=== PATIENT | male | born 1940 | race Caucasian/White ===

== ENCOUNTER 2017-01-16 12:35 | Emergency (ER) | payer MEDICARE, MEDICAID ==
[~2017-01-16] VITALS: Ht 165.1 cm; Wt 81.6 kg
[2017-01-16 12:48] VITALS: BP_SYST 127
[2017-01-16 13:35] LABS: BASOPHILS # (AUTO) 0.1 K/uL (0.0-0.2); EOSINOPHILS # (AUTO) 0.2 K/uL (0.0-0.4); EOSINOPHILS % (AUTO) 1.8 % (0.0-4.0); HEMATOCRIT 44.8 % (36-54); HEMOGLOBIN 14.5 g/dL (14.0-18.0); LYMPHOCYTES # (AUTO) 1.8 K/uL (1.0-5.5); LYMPHOCYTES % (AUTO) 15.7 % (20.5-51.5); MEAN CORPUSCULAR HEMOGLOBIN 30 pg (27-31); MEAN CORPUSCULAR HGB CONC 32 % (32-36); MEAN CORPUSCULAR VOLUME 91 fL (79.0-98.0); MONOCYTES # (AUTO) 0.7 K/uL (0.0-1.0); NEUTROPHILS # (AUTO) 8.7 K/uL (1.8-7.7); NEUTROPHILS % (AUTO) 75.5 % (40.0-70.0); PLATELET COUNT (AUTO) 215 K/uL (130-430); RED BLOOD CELL COUNT(AUTO) 4.91 MIL/uL (4.2-6.2); RED CELL DISTRIBUTION WIDTH 13.6 % (9.0-15.0); WHITE BLOOD COUNT (AUTO) 11.5 K/uL (4.8-10.8)
[2017-01-16 13:38] LABS: CALCIUM 8.8 mg/dL (8.4-11.0); CHLORIDE 105 mmol/L (98-107); CREATININE 0.68 mg/dL (0.55-1.30); GLUCOSE 122 mg/dL (70-99); SODIUM SERUM 138 mmol/L (136-145); UREA NITROGEN, BLOOD 19 mg/dL (8-21)
[2017-01-16 13:44] LABS: ANION GAP < 3 (5-15)
[2017-01-16 13:49] LABS: TOTAL BILIRUBIN 0.6 mg/dL (0.0-1.0)
[2017-01-16 13:50] LABS: ALANINE AMINOTRANSFERASE 28 U/L (12-78); ALBUMIN 3.4 g/dL (3.4-4.8); ASPARTATE AMINOTRANSFERASE 21 U/L (10-37); TOTAL PROTEIN, SERUM 7.5 g/dL (6.4-8.3)
[2017-01-16] MEDS ORDERED: MORPHINE 4 MG/ML INJ. SYRINGE IVP ONE (14:00)
[2017-01-16] MEDS ORDERED: PIPERACILLIN/TAZO 3.38 GM in NS 50 ML IV ONE (14:00)
[2017-01-16] MEDS ORDERED: DIPHENHYDRAMINE INJ 50 MG/ML VIAL IVP ONE (14:00)
[2017-01-16] MEDS ORDERED: PIPERACILLIN/TAZOBACTAM 3.375 GM/VIAL (ZOSYN) IV ONE (14:08)
[2017-01-16 14:11] LABS: INR 1.1 (0.80-1.20)
[2017-01-16 14:55] LABS: BILIRUBIN,URINE NEGATIVE (NEGATIVE); BLOOD, URINE NEGATIVE (NEGATIVE); CLARITY/URINE CLEAR (CLEAR); COLOR,URINE YELLOW (YELLOW); GLUCOSE,URINE NEGATIVE (NEGATIVE); KETONES,URINE NEGATIVE (NEGATIVE); LEUKOCYTE ESTERASE ,URINE NEGATIVE (NEGATIVE); NITRITE, URINE NEGATIVE (NEGATIVE); PROTEIN URINE NEGATIVE (NEGATIVE)
[2017-01-16] MEDS ORDERED: CIPROFLOXACIN HCL 500 MG TABLET PO ONE (15:45)
[2017-01-16 16:38] VITALS: BP_SYST 116
== END 2017-01-16 16:38 | disposition home or self-care (01) ==
LOC: SED 12:35
DX: G89.29 Other chronic pain (principal); M54.5 Low back pain; R19.7 Diarrhea, unspecified; E11.9 Type 2 diabetes mellitus without complications; I10 Essential (primary) hypertension; E78.00 Pure hypercholesterolemia, unspecified; Z98.890 Other specified postprocedural states
CPT/HCPCS: 36415; 71010; 74176; 80053; 81003; 83605; 83690; 85025; 85610; 87040; 93005; 96365; 96375; 99285; J1200; J2543

== ENCOUNTER 2022-10-29 18:11 | Inpatient (IN) | payer OTHER, MEDICAID ==
[~2022-10-29] VITALS: Ht 165.1 cm; Wt 78.0 kg
[~2022-10-29 18:11] MED LIST: DONE10TA44 PO; FINA5TAB3 PO; GABA-529 PO; GLU500 PO; HYDR-3917 PO; ISOS30TA85 PO; LOSA25TA3 PO; LOSA50TA3 PO; MEMA10TA PO; METF-518 PO; METO25TA3 PO; ROSU20TA2 PO; TAMS-11 PO
[2022-10-29 18:15] VITALS: BP_SYST 183
[2022-10-29] MEDS ORDERED: NITROGLYCERIN 1 INCH (GM) OINT. ONE (18:29)
[2022-10-29] MEDS ORDERED: ASPIRIN 81 MG TABLET(ECOTRIN) PO ONE (18:30)
[2022-10-29] MEDS ORDERED: NITROGLYCERIN 0.4 MG TAB.SUBL SL ONE (18:30)
[2022-10-29] MEDS ORDERED: LABETALOL HCL 20 MG/4 ML CARTRIDGE IVP ONE (18:30)
[2022-10-29] MEDS ORDERED: NITROGLYCERIN 1 INCH (GM) OINT. TP ONE (18:30)
[2022-10-29] MEDS ORDERED: ACETAMINOPHEN 325 MG TABLET PO ONE (18:30)
[2022-10-29 19:01] LABS: BASOPHILS % (AUTO) 0.5 % (0.0-2.0); EOSINOPHILS # (AUTO) 0.2 K/uL (0.0-0.4); HEMATOCRIT 40.9 % (36-54); HEMOGLOBIN 13.3 g/dL (14.0-18.0); LYMPHOCYTES % (AUTO) 25.9 % (20.5-51.5); MEAN CORPUSCULAR HEMOGLOBIN 30 pg (27-31); MEAN CORPUSCULAR HGB CONC 33 % (32-36); MEAN CORPUSCULAR VOLUME 93 fL (79.0-98.0); MONOCYTES # (AUTO) 0.8 K/uL (0.0-1.0); MONOCYTES % (AUTO) 9.7 % (1.7-9.3); NEUTROPHILS # (AUTO) 4.8 K/uL (1.8-7.7); NEUTROPHILS % (AUTO) 60.9 % (40.0-70.0); PLATELET COUNT (AUTO) 183 K/uL (130-430); RED BLOOD CELL COUNT(AUTO) 4.39 MIL/uL (4.2-6.2); WHITE BLOOD COUNT (AUTO) 7.8 K/uL (4.8-10.8)
[2022-10-29 19:24] LABS: ANION GAP 7 (5-15); CALCIUM 9.3 mg/dL (8.4-11.0); CHLORIDE 107 mmol/L (98-107); CREATININE 0.83 mg/dL (0.55-1.30); GLUCOSE 111 mg/dL (70-99); UREA NITROGEN, BLOOD 25 mg/dL (8-21)
[2022-10-29 19:32] LABS: ALANINE AMINOTRANSFERASE 19 U/L (12-78); ALBUMIN 3.1 g/dL (3.4-4.8); ASPARTATE AMINOTRANSFERASE 10 U/L (10-37); TOTAL BILIRUBIN 0.5 mg/dL (0.0-1.0)
[2022-10-29] MEDS ORDERED: DOCUSATE SODIUM 100 MG CAPSULE PO PRN (20:30)
[2022-10-29] MEDS ORDERED: MAGNESIUM SULFATE 50 ML IV PRN (20:30)
[2022-10-29] MEDS ORDERED: ONDANSETRON HCL 4 MG/2 ML VIAL IVP PRN (20:30)
[2022-10-29] MEDS ORDERED: POTASSIUM CHLORIDE 20 MEQ TAB.PRT.SR PO PRN (20:30)
[2022-10-29] MEDS ORDERED: MORPHINE 2 MG/ML INJ. SYRINGE IVP PRN ×2 (20:30)
[2022-10-29] MEDS ORDERED: ZOLPIDEM TARTRATE 5 MG TABLET PO PRN (20:30)
[2022-10-29] MEDS ORDERED: ACETAMINOPHEN 325 MG TABLET PO PRN ×2 (20:30→20:45)
[2022-10-29] MEDS ORDERED: LORazepam 2 MG/ML VIAL IVP PRN (20:30)
[2022-10-29] MEDS ORDERED: MUPIROCIN 2% TOPICAL OINTMENT 22 GM NS PRN (20:30)
[2022-10-29] MEDS ORDERED: DONEPEZIL HCL 5 MG TABLET (ARICEPT) PO SCH (21:00)
[2022-10-29] MEDS: GABAPENTIN 100 MG CAPSULE PO SCH (21:23)
[2022-10-29] MEDS: MEMANTINE HCL 5 MG TABLET PO SCH (22:10)
[2022-10-30] VITALS (8 sets, daily range): BP systolic 87–177
[2022-10-30 07:52] LABS: BASOPHILS % (AUTO) 0.4 % (0.0-2.0); EOSINOPHILS # (AUTO) 0.3 K/uL (0.0-0.4); EOSINOPHILS % (AUTO) 3.4 % (0.0-4.0); HEMOGLOBIN 13.4 g/dL (14.0-18.0); LYMPHOCYTES # (AUTO) 2.6 K/uL (1.0-5.5); LYMPHOCYTES % (AUTO) 27.8 % (20.5-51.5); MEAN CORPUSCULAR HEMOGLOBIN 31 pg (27-31); MEAN CORPUSCULAR HGB CONC 33 % (32-36); MEAN CORPUSCULAR VOLUME 94 fL (79.0-98.0); MONOCYTES # (AUTO) 0.9 K/uL (0.0-1.0); MONOCYTES % (AUTO) 10.2 % (1.7-9.3); NEUTROPHILS # (AUTO) 5.4 K/uL (1.8-7.7); NEUTROPHILS % (AUTO) 58.2 % (40.0-70.0); PLATELET COUNT (AUTO) 197 K/uL (130-430); RED BLOOD CELL COUNT(AUTO) 4.38 MIL/uL (4.2-6.2); RED CELL DISTRIBUTION WIDTH 14.1 % (9.0-15.0); WHITE BLOOD COUNT (AUTO) 9.3 K/uL (4.8-10.8)
[2022-10-30 08:16] LABS: ALANINE AMINOTRANSFERASE 20 U/L (12-78); ALBUMIN 3.1 g/dL (3.4-4.8); ANION GAP 7 (5-15); ASPARTATE AMINOTRANSFERASE 12 U/L (10-37); CHLORIDE 105 mmol/L (98-107); CREATININE 0.77 mg/dL (0.55-1.30); GLUCOSE 95 mg/dL (70-99); TOTAL BILIRUBIN 0.5 mg/dL (0.0-1.0); UREA NITROGEN, BLOOD 23 mg/dL (8-21)
[2022-10-30] MEDS ORDERED: ASPIRIN 81 MG TAB.CHEW PO SCH (09:00)
[2022-10-30] MEDS ORDERED: LOSARTAN POTASSIUM 25 MG TABLET PO SCH (09:00)
[2022-10-30] MEDS ORDERED: TAMSULOSIN HCL 0.4 MG CAP PO SCH (09:00)
[2022-10-30] MEDS ORDERED: ISOSORBIDE MONONITRATE 30 MG TAB.ER.24H PO SCH (09:00)
[2022-10-30] MEDS ORDERED: METOPROLOL SUCCINATE 25 MG TAB.SR.24H (TOPROL XL) PO SCH (09:00)
[2022-10-30] MEDS ORDERED: FINASTERIDE 5 MG TABLET (PROSCAR) PO SCH (09:00)
[2022-10-30] MEDS ORDERED: metFORMIN HCL 500 MG TABLET PO SCH (09:00)
[2022-10-30] MEDS: MEMANTINE HCL 5 MG TABLET PO SCH (09:37)
[2022-10-30] MEDS: GABAPENTIN 100 MG CAPSULE PO SCH (09:38)
== END 2022-10-30 13:40 | disposition home or self-care (01) | DRG 305 ==
LOC: SED 18:11 → MERGE 20:20 → STU 20:20
PROVIDERS: ADMIT Family Medicine; ATTEND Family Medicine
DX: I16.0 Hypertensive urgency (principal); E44.1 Mild protein-calorie malnutrition; R07.89 Other chest pain; I10 Essential (primary) hypertension; Z20.822 Contact with and (suspected) exposure to COVID-19; F03.B0 Unspecified dementia, moderate, without behavioral disturbance, psychotic disturbance, mood disturbance, and anxiety; E11.9 Type 2 diabetes mellitus without complications; Z79.891 Long term (current) use of opiate analgesic; Z79.899 Other long term (current) drug therapy; Z68.28 Body mass index [BMI] 28.0-28.9, adult; Z86.73 Personal history of transient ischemic attack (TIA), and cerebral infarction without residual deficits; Z87.891 Personal history of nicotine dependence
CPT/HCPCS: 36415; 71045; 80053; 83735; 83880; 84484; 85025; 93005; 93306; 99285; G0378

== ENCOUNTER 2022-12-17 18:56 | Emergency (ER) | payer OTHER, MEDICAID ==
[~2022-12-17] VITALS: Ht 165.1 cm; Wt 83.9 kg
[~2022-12-17 18:56] MED LIST changes: -LOSA50TA3 PO; -METF-518 PO
[2022-12-17 19:14] VITALS: BP_SYST 140
--- NOTE | 2022-12-17 19:19 | NUR ---
Patient to ER bed 01 to gown for evaluation. Side rails up. Report given to MAUREEN DAO.
--- NOTE | 2022-12-17 19:33 | NUR ---
MD AT BEDSIDE FOR ASSESSMENT, PATIENT STATES HE IS HAVING CHEST PAIN, NSR ON EKG
--- NOTE | 2022-12-17 19:39 | NUR ---
PATIENT STATWES HE TOOK NITRO AT HOME THAT HELPED RELIEVE HIS CHEST PAIN, STATES PATIENT HAS CHEST PAIN ON A DAILY BASIS
--- NOTE | 2022-12-17 19:44 | NUR ---
LAB AT BEDSIDE FOR BLOOD DRAW
[2022-12-17] MEDS ORDERED: ACETAMINOPHEN 500 MG TABLET PO ONE (19:45)
[2022-12-17 20:03] LABS: BASOPHILS % (AUTO) 0.4 % (0.0-2.0); EOSINOPHILS # (AUTO) 0.2 K/uL (0.0-0.4); EOSINOPHILS % (AUTO) 2.4 % (0.0-4.0); HEMATOCRIT 40.6 % (36-54); HEMOGLOBIN 13.1 g/dL (14.0-18.0); LYMPHOCYTES % (AUTO) 25.7 % (20.5-51.5); MEAN CORPUSCULAR HEMOGLOBIN 30 pg (27-31); MEAN CORPUSCULAR HGB CONC 32 % (32-36); MEAN CORPUSCULAR VOLUME 94 fL (79.0-98.0); MONOCYTES # (AUTO) 0.7 K/uL (0.0-1.0); MONOCYTES % (AUTO) 9.6 % (1.7-9.3); NEUTROPHILS # (AUTO) 4.7 K/uL (1.8-7.7); NEUTROPHILS % (AUTO) 61.9 % (40.0-70.0); PLATELET COUNT (AUTO) 168 K/uL (130-430); RED BLOOD CELL COUNT(AUTO) 4.34 MIL/uL (4.2-6.2); RED CELL DISTRIBUTION WIDTH 14.2 % (9.0-15.0); WHITE BLOOD COUNT (AUTO) 7.6 K/uL (4.8-10.8)
[2022-12-17 20:13] LABS: ANION GAP 9 (5-15); CALCIUM 8.4 mg/dL (8.4-11.0); CHLORIDE 103 mmol/L (98-107); CREATININE 1.02 mg/dL (0.55-1.30); GLUCOSE 144 mg/dL (70-99); UREA NITROGEN, BLOOD 24 mg/dL (8-21)
[2022-12-17 20:20] LABS: ALANINE AMINOTRANSFERASE 24 U/L (12-78); ALBUMIN 2.9 g/dL (3.4-4.8); ASPARTATE AMINOTRANSFERASE 16 U/L (10-37); TOTAL BILIRUBIN 0.4 mg/dL (0.0-1.0)
[2022-12-17] MEDS ORDERED: NS 500 ML IV ONE (20:45)
[2022-12-17] MEDS ORDERED: iohexoL 350 mgI/mL, 100 ML INFUS..BTL IV ONE (20:58)
--- NOTE | 2022-12-17 21:01 | NUR ---
20G IV PLACED IN RIGHT AC, IV FLUIDS IN PROGRESS
--- NOTE | 2022-12-17 21:25 | NUR ---
PATIENT TAKEN TO RADIOLOGY FOE CTA OF CHEST, CONSENT SIGNED
[2022-12-17 22:49] VITALS: BP_SYST 116
== END 2022-12-17 22:49 | disposition home or self-care (01) ==
LOC: SED 18:56
DX: R07.89 Other chest pain (principal); E11.9 Type 2 diabetes mellitus without complications; I10 Essential (primary) hypertension; Z79.899 Other long term (current) drug therapy
CPT/HCPCS: 99285; 96360; 71275; 71045; 80053; 83880; 85025; 85379; 84484; 36415; 93005; 76376; Q9967; J7030

== ENCOUNTER 2022-12-25 11:30 | Emergency (ER) | payer OTHER, MEDICAID ==
[~2022-12-25] VITALS: Ht 165.1 cm; Wt 82.6 kg
[2022-12-25 11:44] VITALS: BP_SYST 124
--- NOTE | 2022-12-25 11:49 | NUR ---
Patient triaged and placed in waiting room. VSS and patient appears in no acute distress at this time. Pt C/O bright red rectal bleeding X3 days. Accompanied by self, awaiting available bed, and MD notified of need for MSE.
--- NOTE | 2022-12-25 12:18 | NUR ---
Placed in room 1. Placed on cafeteria monitor, blood pressure machine and pulse oximeter. To gown for exam. Side rails up. Report given to
--- NOTE | 2022-12-25 12:20 | NUR ---
RECEIVED PT FROM MAUREEN ZABALA. PT BIB WITH C/O RECTAL BLEEDING, BRIGHT RED BLOOD. PT IS AAOX4. NO R/A. DENIES N/V/D/C. DISTAL PULSES NORMAL, SKIN WARM, CDI. VSS. SIDERAILS UP X2.
--- NOTE | 2022-12-25 12:22 | NUR ---
DR. MELGOZA AT BEDSIDE TO ASSESS PT.
[2022-12-25 12:27] LABS: BASOPHILS # (AUTO) 0.1 K/uL (0.0-0.2); EOSINOPHILS # (AUTO) 0.2 K/uL (0.0-0.4); MEAN CORPUSCULAR HEMOGLOBIN 30 pg (27-31)
[2022-12-25 12:35] LABS: BASOPHILS % (AUTO) 0.9 % (0.0-2.0); EOSINOPHILS % (AUTO) 1.9 % (0.0-4.0); HEMATOCRIT 42.5 % (36-54); HEMOGLOBIN 13.9 g/dL (14.0-18.0); LYMPHOCYTES # (AUTO) 2.8 K/uL (1.0-5.5); LYMPHOCYTES % (AUTO) 24.1 % (20.5-51.5); MEAN CORPUSCULAR HGB CONC 33 % (32-36); MEAN CORPUSCULAR VOLUME 93 fL (79.0-98.0); MONOCYTES % (AUTO) 8.7 % (1.7-9.3); NEUTROPHILS # (AUTO) 7.4 K/uL (1.8-7.7); NEUTROPHILS % (AUTO) 64.4 % (40.0-70.0); PLATELET COUNT (AUTO) 185 K/uL (130-430); RED BLOOD CELL COUNT(AUTO) 4.57 MIL/uL (4.2-6.2); WHITE BLOOD COUNT (AUTO) 11.4 K/uL (4.8-10.8)
[2022-12-25 12:39] LABS: ANION GAP 10 (5-15); CHLORIDE 104 mmol/L (98-107); CREATININE 1.06 mg/dL (0.55-1.30); GLUCOSE 108 mg/dL (70-99); UREA NITROGEN, BLOOD 31 mg/dL (8-21)
[2022-12-25 12:42] LABS: INR 1.1 (0.80-1.20); PROTHROMBIN TIME 11.2 SECS (9.5-12.5)
[2022-12-25 12:44] LABS: ALANINE AMINOTRANSFERASE 27 U/L (12-78); ALBUMIN 3.3 g/dL (3.4-4.8); AMYLASE 91 U/L (0-100); ASPARTATE AMINOTRANSFERASE 17 U/L (10-37); LIPASE 115 U/L (73-393); TOTAL BILIRUBIN 0.7 mg/dL (0.0-1.0)
--- NOTE | 2022-12-25 13:28 | NUR ---
PROVIDED PT WITH URINAL. PT COMFORTABLE IN BED BEDSIDE.
--- NOTE | 2022-12-25 14:06 | NUR ---
CALLED RADIOLOGY AND MADE THEM AWARE PT HAS CT SCAN IS OVERDUE. THE TECH KAYCEE STATED SHE WILL SEND SOMEONE.
[2022-12-25 15:07] VITALS: BP_SYST 129
--- NOTE | 2022-12-25 15:10 | NUR ---
Patient given written and verbal discharge instructions and verbalizes understanding. ER MD discussed with patient the results and treatment provided. Patient in stable condition. ID arm band removed. Patient educated on pain management and to follow up with PMD. Pain Scale O/10. Opportunity for questions provided and answered. Medication side effect fact sheet provided.
== END 2022-12-25 15:10 | disposition home or self-care (01) ==
LOC: SED 11:30
DX: K62.5 Hemorrhage of anus and rectum (principal); E11.9 Type 2 diabetes mellitus without complications; I10 Essential (primary) hypertension; Z79.899 Other long term (current) drug therapy
CPT/HCPCS: 36415; 76376; 80053; 82150; 83605; 83690; 85025; 85610-TC; 85730-TC; 86886; 86900; 86901; 99284

== ENCOUNTER 2023-05-02 16:09 | Emergency (ER) | payer OTHER, MEDICAID ==
[~2023-05-02] VITALS: Ht 165.1 cm; Wt 81.6 kg
[~2023-05-02 16:09] MED LIST changes: +FINA-37 PO; -FINA5TAB3 PO; +LOSA-412 PO; -LOSA25TA3 PO
[2023-05-02 16:22] VITALS: BP_SYST 114; PULSE 107; RESP 18; TEMP 98.3; O2SAT 98
[2023-05-02 17:57] LABS: BILIRUBIN,URINE NEGATIVE (NEGATIVE); BLOOD, URINE NEGATIVE (NEGATIVE); CLARITY/URINE CLEAR (CLEAR); COLOR,URINE YELLOW (YELLOW); GLUCOSE,URINE NEGATIVE (NEGATIVE); KETONES,URINE NEGATIVE (NEGATIVE); LEUKOCYTE ESTERASE ,URINE NEGATIVE (NEGATIVE); NITRITE, URINE NEGATIVE (NEGATIVE); PROTEIN URINE NEGATIVE (NEGATIVE); UROBILINOGEN,URINE 0.2 (0.2-1.0)
[2023-05-02] MEDS ORDERED: HYDC2.5% TP (18:08)
[2023-05-02] MEDS ORDERED: DIPH28.34 TP (18:08)
== END 2023-05-02 18:19 | disposition home or self-care (01) ==
LOC: SED 16:09
DX: S40.862A Insect bite (nonvenomous) of left upper arm, initial encounter (principal); R33.9 Retention of urine, unspecified; N40.0 Benign prostatic hyperplasia without lower urinary tract symptoms; E11.9 Type 2 diabetes mellitus without complications; I10 Essential (primary) hypertension; Z79.899 Other long term (current) drug therapy; W57.XXXA Bitten or stung by nonvenomous insect and other nonvenomous arthropods, initial encounter; Y93.89 Activity, other specified; Y92.89 Other specified places as the place of occurrence of the external cause; Y99.8 Other external cause status
CPT/HCPCS: 81003; 82962; 99283

== ENCOUNTER 2023-12-12 19:21 | Emergency (ER) | payer OTHER, MEDICAID ==
[~2023-12-12] VITALS: Ht 165.1 cm; Wt 77.1 kg
[~2023-12-12 19:21] MED LIST changes: +DIPH28.34 TP; +HYDC2.5% TP
[2023-12-12 19:38] VITALS: BP_SYST 147; PULSE 88; RESP 18; TEMP 97.4; O2SAT 95
[2023-12-12 20:00] VITALS: TEMP 97.4
[2023-12-12 20:06] LABS: BASOPHILS % (AUTO) 0.5 % (0.0-2.0); EOSINOPHILS # (AUTO) 0.2 K/uL (0.0-0.4); EOSINOPHILS % (AUTO) 2.4 % (0.0-4.0); HEMATOCRIT 37.9 % (36-54); HEMOGLOBIN 12.8 g/dL (14.0-18.0); LYMPHOCYTES # (AUTO) 2.4 K/uL (1.0-5.5); LYMPHOCYTES % (AUTO) 30.1 % (20.5-51.5); MEAN CORPUSCULAR HEMOGLOBIN 31 pg (27-31); MEAN CORPUSCULAR HGB CONC 34 % (32-36); MEAN CORPUSCULAR VOLUME 91 fL (79.0-98.0); MONOCYTES # (AUTO) 0.9 K/uL (0.0-1.0); MONOCYTES % (AUTO) 10.7 % (1.7-9.3); NEUTROPHILS # (AUTO) 4.6 K/uL (1.8-7.7); NEUTROPHILS % (AUTO) 56.3 % (40.0-70.0); PLATELET COUNT (AUTO) 177 K/uL (130-430); RED BLOOD CELL COUNT(AUTO) 4.15 MIL/uL (4.2-6.2); RED CELL DISTRIBUTION WIDTH 14.1 % (9.0-15.0); WHITE BLOOD COUNT (AUTO) 8.1 K/uL (4.8-10.8)
[2023-12-12 20:20] LABS: ALANINE AMINOTRANSFERASE 22 U/L (12-78); ALBUMIN 2.8 g/dL (3.4-4.8); ANION GAP 3 (5-15); ASPARTATE AMINOTRANSFERASE 7 U/L (10-37); BILIRUBIN,DIRECT 0.1 mg/dL (0.0-0.3); CALCIUM 8.8 mg/dL (8.4-11.0); CARBON DIOXIDE 33 mmol/L (23-29); CHLORIDE 109 mmol/L (98-107); CREATININE 0.92 mg/dL (0.55-1.30); GLUCOSE 107 mg/dL (74-106); SODIUM SERUM 145 mmol/L (136-145); TOTAL BILIRUBIN 0.5 mg/dL (0.0-1.0); TOTAL PROTEIN, SERUM 6.4 g/dL (6.4-8.3); UREA NITROGEN, BLOOD 24 mg/dL (8-21)
[2023-12-12 20:54] LABS: BILIRUBIN,URINE NEGATIVE (NEGATIVE); BLOOD, URINE NEGATIVE (NEGATIVE); CLARITY/URINE CLEAR (CLEAR); COLOR,URINE YELLOW (YELLOW); GLUCOSE,URINE NEGATIVE (NEGATIVE); KETONES,URINE NEGATIVE (NEGATIVE); LEUKOCYTE ESTERASE ,URINE NEGATIVE (NEGATIVE); NITRITE, URINE NEGATIVE (NEGATIVE); PROTEIN URINE NEGATIVE (NEGATIVE)
[2023-12-13 00:22] VITALS: BP_SYST 136; PULSE 71; RESP 16; O2SAT 91
== END 2023-12-13 00:05 | disposition home or self-care (01) ==
LOC: SED 19:21
DX: R10.9 Unspecified abdominal pain (principal); E11.9 Type 2 diabetes mellitus without complications; I10 Essential (primary) hypertension; Z88.2 Allergy status to sulfonamides
CPT/HCPCS: 36415; 80048; 80076; 81001; 81003; 84484; 85025; 99284

== ENCOUNTER 2024-03-03 10:07 | Emergency (ER) | payer OTHER, MEDICAID ==
[~2024-03-03] VITALS: Ht 165.1 cm; Wt 81.6 kg
[2024-03-03 10:12] VITALS: BP_SYST 113; PULSE 93; RESP 18; TEMP 97; O2SAT 96
[2024-03-03 11:10] LABS: BASOPHILS % (AUTO) 0.5 % (0.0-2.0); EOSINOPHILS # (AUTO) 0.2 K/uL (0.0-0.4); EOSINOPHILS % (AUTO) 2.2 % (0.0-4.0); HEMATOCRIT 41.4 % (36-54); HEMOGLOBIN 13.4 g/dL (14.0-18.0); LYMPHOCYTES # (AUTO) 2.6 K/uL (1.0-5.5); LYMPHOCYTES % (AUTO) 27.5 % (20.5-51.5); MEAN CORPUSCULAR HEMOGLOBIN 30 pg (27-31); MEAN CORPUSCULAR HGB CONC 32 % (32-36); MEAN CORPUSCULAR VOLUME 93 fL (79.0-98.0); MONOCYTES % (AUTO) 10.9 % (1.7-9.3); NEUTROPHILS # (AUTO) 5.5 K/uL (1.8-7.7); NEUTROPHILS % (AUTO) 58.9 % (40.0-70.0); PLATELET COUNT (AUTO) 210 K/uL (130-430); RED BLOOD CELL COUNT(AUTO) 4.47 MIL/uL (4.2-6.2); WHITE BLOOD COUNT (AUTO) 9.4 K/uL (4.8-10.8)
[2024-03-03 11:35] LABS: ALANINE AMINOTRANSFERASE 22 U/L (12-78); ALBUMIN 3.1 g/dL (3.4-4.8); AMYLASE 172 U/L (0-100); ANION GAP 4 (5-15); ASPARTATE AMINOTRANSFERASE 15 U/L (10-37); BILIRUBIN,DIRECT 0.1 mg/dL (0.0-0.3); CARBON DIOXIDE 32 mmol/L (23-29); CHLORIDE 106 mmol/L (98-107); CREATININE 1.02 mg/dL (0.55-1.30); GLUCOSE 81 mg/dL (74-106); LIPASE 115 U/L (16-77); POTASSIUM 4.4 mmol/L (3.5-5.1); SODIUM SERUM 142 mmol/L (136-145); TOTAL BILIRUBIN 0.5 mg/dL (0.0-1.0); TOTAL PROTEIN, SERUM 6.7 g/dL (6.4-8.3); UREA NITROGEN, BLOOD 26 mg/dL (8-21)
[2024-03-03 12:23] LABS: INR 1.1 (0.80-1.20)
[2024-03-03] MEDS ORDERED: OMEP20CA15 PO (12:23)
[2024-03-03 12:25] VITALS: BP_SYST 124; PULSE 74; RESP 19; TEMP 97; O2SAT 96
== END 2024-03-03 12:40 | disposition home or self-care (01) ==
LOC: SED 10:07
DX: K92.2 Gastrointestinal hemorrhage, unspecified (principal); R10.84 Generalized abdominal pain; E11.9 Type 2 diabetes mellitus without complications; I10 Essential (primary) hypertension; Z88.2 Allergy status to sulfonamides; Z79.899 Other long term (current) drug therapy; Z79.2 Long term (current) use of antibiotics
CPT/HCPCS: 36415; 80048; 80076; 82150; 83605; 83690; 85025; 85610; 85730; 86886; 86900; 86901; 99284

== ENCOUNTER 2024-05-05 04:18 | Emergency (ER) | payer OTHER, MEDICAID ==
[~2024-05-05] VITALS: Ht 160 cm; Wt 77.1 kg
[~2024-05-05 04:18] MED LIST changes: +OMEP20CA15 PO
[2024-05-05 04:29] VITALS: BP_SYST 113; PULSE 101; RESP 18; TEMP 98.3; O2SAT 98
[2024-05-05 05:22] LABS: BASOPHILS % (AUTO) 0.5 % (0.0-2.0); EOSINOPHILS # (AUTO) 0.2 K/uL (0.0-0.4); EOSINOPHILS % (AUTO) 2.4 % (0.0-4.0); HEMATOCRIT 43.4 % (36-54); HEMOGLOBIN 14.1 g/dL (14.0-18.0); LYMPHOCYTES # (AUTO) 3.2 K/uL (1.0-5.5); LYMPHOCYTES % (AUTO) 33.6 % (20.5-51.5); MEAN CORPUSCULAR HEMOGLOBIN 30 pg (27-31); MEAN CORPUSCULAR HGB CONC 33 % (32-36); MEAN CORPUSCULAR VOLUME 92 fL (79.0-98.0); MONOCYTES % (AUTO) 10.5 % (1.7-9.3); PLATELET COUNT (AUTO) 202 K/uL (130-430); RED BLOOD CELL COUNT(AUTO) 4.74 MIL/uL (4.2-6.2); RED CELL DISTRIBUTION WIDTH 14.7 % (9.0-15.0); WHITE BLOOD COUNT (AUTO) 9.4 K/uL (4.8-10.8)
[2024-05-05 05:39] LABS: ANION GAP 9 (5-15); CALCIUM 9.5 mg/dL (8.4-11.0); CARBON DIOXIDE 29 mmol/L (23-29); CHLORIDE 110 mmol/L (98-107); CREATININE 0.86 mg/dL (0.55-1.30); GLUCOSE 102 mg/dL (74-106); POTASSIUM 3.9 mmol/L (3.5-5.1); SODIUM SERUM 148 mmol/L (136-145); UREA NITROGEN, BLOOD 31 mg/dL (8-21)
[2024-05-05 05:40] LABS: ALANINE AMINOTRANSFERASE 21 U/L (12-78); ALBUMIN 3.4 g/dL (3.4-4.8); ASPARTATE AMINOTRANSFERASE 15 U/L (10-37); BILIRUBIN,DIRECT 0.1 mg/dL (0.0-0.3); TOTAL BILIRUBIN 0.5 mg/dL (0.0-1.0); TOTAL PROTEIN, SERUM 6.8 g/dL (6.4-8.3)
[2024-05-05 08:08] VITALS: BP_SYST 142; PULSE 78; RESP 15; TEMP 98.6; O2SAT 94
== END 2024-05-05 07:40 | disposition home or self-care (01) ==
LOC: SED 04:18
DX: R07.89 Other chest pain (principal); E11.9 Type 2 diabetes mellitus without complications; E78.00 Pure hypercholesterolemia, unspecified; I10 Essential (primary) hypertension; Z98.890 Other specified postprocedural states; Z88.2 Allergy status to sulfonamides; Z79.84 Long term (current) use of oral hypoglycemic drugs; Z79.899 Other long term (current) drug therapy
CPT/HCPCS: 36415; 71045; 80048; 80076; 82948; 83880; 84484; 85025; 85379; 93005; 99285